=== PATIENT | male | born 1965 | race Caucasian/White ===

== ENCOUNTER 2018-08-14 13:57 | Emergency (ER) | payer BC, SELFPAY ==
[2018-08-14 13:58] VITALS: BP 152/90; PULSE 96; RESP 18; TEMP 36.9; O2SAT 100; BMI 31.0
[2018-08-14] MEDS: morphine 8 MG/ML Syringe IV (14:41)
[2018-08-14] MEDS: Ketorolac 30 MG/ML Syringe IV (14:41)
[2018-08-14] MEDS: Ondansetron 4 MG/2 ML Vial IV (14:41)
[2018-08-14 15:05] LABS: Mucous, Urine 0 SEEN /hpf (<or=2+); Squamous Epithelial Cells - UA 0 SEEN /hpf (0-5); White Blood Cells 0 SEEN /hpf (0-5)
--- NOTE | 2018-08-14 15:07 | ED.VISSUMM ---
- ER Visit Summary Date of Service: 08/14/18 Chief Complaint: Right flank pain with recently diagnosed kidney stone History of Present Illness: The patient is a 53 M stripper kidney stones. Was diagnosed on Friday with a right kidney stone at [facility]. He was diagnosed with a 4 mm proximal stone. At that time he had a normal creatinine and urine was unremarkable except for some bacteria. Patient was started on Percocet, Naprosyn and Flomax by [facility]. States certain times he has some breakthrough discomfort. He denies nausea, or vomiting. He denies any diarrhea. Physical Examination: Ill-appearing middle-aged male. Vital signs are afebrile. Temperature 98.4. He does not look septic or toxic. He is in no acute distress. HEENT exam unremarkable. Moist mucous membranes. Neck nontender no lymphadenopathy. Lungs clear to auscultation bilaterally. Heart regular rhythm no murmur. Abdomen soft nontender. Normal bowel sounds no peritoneal signs. No hernias or masses. No signs of obstruction. He is moving all 4 extremities. Neurovascular intact. No edema. Back nontender. No CVA tenderness. Neurologically is awake alert without any focal motor deficits. Test Results: I obtained his recent test results of [place]. It was a 4 mm right proximal ureteral stone. Emergency Department Course and Treatment: Patient is being treated here with IV Toradol and morphine. On repeat exam currently at 1510 is doing well. Abdomen is benign. Patient is doing well repeat exam and 1540. Abdomen is benign. Currently he is symptom-free. Treatment Plan: [] Disposition: Discharge Impression: Right flank pain with a recently diagnosed 4 mm right ureteral calculi This note was generated with [employer] dictation software. It may contain incorrect words, spelling, and punctuation that were not noted in review of the chart prior to signing ED Disposition - Plan for ED Patient: Chief Complaint: Flank Pain Referrals: Grayson Ignacio MD [Primary Care Provider] -
--- NOTE | 2018-08-14 15:12 | ED.DCSUM_ITS ---
- ER Visit Summary Date of Service: 08/14/18 Chief Complaint: Right flank pain with recently diagnosed kidney stone History of Present Illness: The patient is a 53 M stripper kidney stones. Was diagnosed on Friday with a right kidney stone at [facility]. He was diagnosed with a 4 mm proximal stone. At that time he had a normal creatinine and urine was unremarkable except for some bacteria. Patient was started on Percocet, Naprosyn and Flomax by [facility]. States certain times he has some breakthrough discomfort. He denies nausea, or vomiting. He denies any diarrhea. Physical Examination: Ill-appearing middle-aged male. Vital signs are afebrile. Temperature 98.4. He does not look septic or toxic. He is in no acute distress. HEENT exam unremarkable. Moist mucous membranes. Neck nontender no lymphadenopathy. Lungs clear to auscultation bilaterally. Heart regular rhythm no murmur. Abdomen soft nontender. Normal bowel sounds no peritoneal signs. No hernias or masses. No signs of obstruction. He is moving all 4 extremities. Neurovascular intact. No edema. Back nontender. No CVA tenderness. Neurologically is awake alert without any focal motor deficits. Test Results: I obtained his recent test results of [place]. It was a 4 mm right proximal ureteral stone. Emergency Department Course and Treatment: Patient is being treated here with IV Toradol and morphine. On repeat exam currently at 1510 is doing well. Abdomen is benign. Patient is doing well repeat exam and 1540. Abdomen is benign. Currently he is symptom-free. Treatment Plan: [] Disposition: Discharge Impression: Right flank pain with a recently diagnosed 4 mm right ureteral calculi This note was generated with [employer] dictation software. It may contain incorrect words, spelling, and punctuation that were not noted in review of the chart prior to signing ED Disposition - Plan for ED Patient: Chief Complaint: Flank Pain Referrals: Grayson Ignacio MD [Primary Care Provider] -
--- NOTE | 2018-08-14 15:36 | ED.DEP ---
ED Disposition - Plan for ED Patient: Disposition: Home or Assisted Living Chief Complaint: Flank Pain Instructions: ED Stone Renal W Colic Referrals: Anurag Martinez MD [STAFF PHYSICIAN] - 3-5 Days if not improving Additional Instructions: Fluids and rest. Continue your current medications. Strain urine for possible passed stone.
[2018-08-14 15:51] LABS: Color, Urine Yellow (Yellow); Glucose, Dipstick 50 mg/dl (Normal); Ketone-Dipstick 5 mg/dl (Negative); Leukocyte Esterase-Dipstick Negative /ul (Negative); Nitrite-Dipstick Negative (Negative); Occult Blood-Urine 50 /ul (Negative); Protein-Dipstick 15 mg/dl (Negative); Specific Gravity, Urine 1.015 (1.002-1.030); Urine Bilirubin Dipstick Negative (Negative); Urine Clarity Clear (Clear); Urine Urobilinogen Normal (Normal); Urine pH 6.5 (5.0 - 8.0)
[2018-08-14 16:04] LABS: Bacteria RARE /hpf (None Seen); Red Blood Cells-Urine 0-5 SEEN /hpf (0-5)
[2018-08-14 16:37] VITALS: BP 140/85; PULSE 85; RESP 14; O2SAT 98
== END 2018-08-14 16:38 | disposition home or self-care (01) ==
PROVIDERS: Emergency Provider Emergency Medicine; Family Provider Internal Medicine; PCP Internal Medicine
DX: N20.1 Calculus of ureter (principal); R10.9 Unspecified abdominal pain
CPT/HCPCS: 81001; 96374; 96375; 99285; A4216; J2405

== ENCOUNTER → 2022-07-01 | Outpatient (CLI) | payer BC, SELFPAY ==
--- NOTE | 2022-07-01 10:12 | MRI_ITS ---
STUDY: MR RIGHT HIP ARTHROGRAPHY REASON FOR EXAM: Right hip and anterior leg pain for 4 months. TECHNIQUE: Standardized fat and water weighted pulse sequences were obtained in all 3 orthogonal planes after intra-articular instillation of 0.08 milliliters of dilute gadolinium. COMPARISON: Arthrogram image preceding MRI. FINDINGS: Normal hip joint without articular joint space narrowing. Normal acetabulum. There is a small tear of the anterosuperior labrum (T1 sagittal image 10). There is a femoral cam lesion (T1 sagittal image 11). Normal femoral neck and intratrochanteric region. Normal gluteus minimus, medius and iliopsoas tendons and distal insertions. There is no trochanteric, iliopsoas or iliopectineal bursitis. Normal superior and inferior pubic rami. Normal pubic symphysis. Normal ischial tuberosity. There is a partial tear of the conjoint tendon (T1 axial images 5-7). Normal visualized iliac wing, sacroiliac joint, and sacral ala. There is extravasated contrast at the anterior aspect of the hip. MRI/Lower Ext/Jt Only/W Contrast IMPRESSION: Small tear of the anterosuperior labrum. Femoral cam lesion. Partial tear of the conjoint tendon. Electronically Signed: Chris Vanessa MD at 12:47 EDT ,
--- NOTE | 2022-07-01 10:35 | RAD_ITS ---
CLINICAL HISTORY: Male, 57 years old. Chronic right hip pain. PROCEDURE: ARTHROGRAM - RIGHT HIP CONSENT: The procedure as well as the benefits and possible complications including infection and bleeding were explained to the patient. Informed consent was obtained. FLUOROSCOPY TIME (if supplied): (1 minute and 12 seconds.) minutes/seconds Injection Information: 10 cc of dilute MRI contrast. Number of images obtained: 1 TECHNIQUE: (All elements of maximal sterile barrier technique followed, including US elements as applicable) The patient was in the supine position. The overlying skin was prepped and draped in the usual sterile fashion. Following local anesthetic application and under direct fluoroscopic guidance, puncture of the right hip joint was performed utilizing a 22-gauge spinal needle. 2 cc of ISOVUE 300 was injected for confirmation. Following this, 10 cc of dilute MRI contrast was injected. The patient tolerated the procedure well. RAD/Arthrogram Hip w/ MRI IMPRESSION: Right hip arthrogram for MRI to follow. The patient tolerated the procedure well. Electronically Signed: Giovanny Tay MD at 12:34 EDT ,
[2022-07-01] MEDS: Lidocaine 2% (5ml sdv) 5 ML VIAL.MPF (10:55)
[2022-07-01] MEDS: Iopamidol 10 ML in Syringe 1 EACH 600 ML INTRAARTIC (11:20)
[2022-07-01] MEDS: Gadoterate Meglumine Diluted 10 ML, Iopamidol 5 ML, Lidocaine 1% (20 ml mdv) 5 ML, Epin... INTRAARTIC (11:21)
== END | disposition home or self-care (01) ==
PROVIDERS: PCP Internal Medicine; Referring Provider Physician Assistant Surgical; Visit Provider Physician Assistant Surgical
DX: S73.191D Other sprain of right hip, subsequent encounter (principal)
CPT/HCPCS: 27093; 73722; 77002; Q9967